=== PATIENT | male | born 1950 ===

== ENCOUNTER 2016-08-06 09:37 | Observation (INO) | payer MEDICARE ==
--- NOTE | 2016-08-06 10:12 | CT ---
PROCEDURE: CT HEAD WITHOUT CONTRAST. HISTORY: R sided weakness/ numbness code stroke COMPARISON: None available. TECHNIQUE: Axial computed tomography images were obtained through the head/brain without intravenous contrast. Radiation dose: Total exam DLP = 793.76 mGy-cm. This CT exam was performed using one or more of the following dose reduction techniques: Automated exposure control, adjustment of the mA and/or kV according to patient size, and/or use of iterative reconstruction technique. FINDINGS: HEMORRHAGE: No parenchymal , subarachnoid or extra-axial hemorrhage. BRAIN: Mild chronic periventricular white matter ischemic changes seen extending peripherally into the deep white matter both cerebral hemispheres. Moderate volume loss. Minor vascular calcifications are present VENTRICLES: No evidence of obstructive hydrocephalus. CALVARIUM: Unremarkable. PARANASAL SINUSES: Unremarkable as visualized. No significant inflammatory changes. MASTOID AIR CELLS: Unremarkable as visualized. No inflammatory changes. OTHER FINDINGS: None. IMPRESSION: No acute intracranial hemorrhage. Mild chronic periventricular white matter ischemic changes. Moderate volume loss. Findings discussed with Dr. Tiwari at approximately 10:08 a.m. with written down and read back verification.
[2016-08-06 10:14] LABS: BASO # 0.1 K/uL (0.0-0.2); BASO % 1.1 % (0.0-2.0); EOS # 0.1 K/uL (0.0-0.7); EOS % 1.5 % (0.0-4.0); LYMPH # 2.7 K/uL (1.0-4.3); LYMPH % 33.8 % (20.0-40.0); MEAN CELL VOLUME 92.1 fl (80.0-94.0); MEAN CORPUSCULAR HEMOGLOBIN 31.3 pg (27.0-31.0); MEAN CORPUSCULAR HGB CONC 33.9 g/dL (33.0-37.0); MONO # 0.8 K/uL (0.0-0.8); MONO % 9.6 % (0.0-10.0); NEUT # 4.3 K/uL (1.8-7.0); NRBC % 0.1 % (0.0-0.0); RED CELL DISTRIBUTION WIDTH 14.1 % (11.5-14.5); WHITE BLOOD COUNT 7.9 K/uL (4.8-10.8)
--- NOTE | 2016-08-06 10:17 | ED PDOC ---
HPI:STROKE - Time Time: 09:52 - Historian Historian: Patient, Family - Chief Complaint Chief Complaint: Weakness, Numbness - Onset Date: 08/06/16 Time: 09:30 - Timing Timing: Improved - Context Context: Standing, Walking - Location Locate right:: Upper extremity, Lower extremity - Exacerbated by Exacerbated by:: Exertion - Relieved by Relieved by:: Rest - TPA Positive for Contraindication: Yes Reason tPA is not being Administered: rapid improvement, NIHSS <4 - Notes: Notes:: 65yo male hx HTN, presents stating he was moving his car this morning and developed R facial numbness which progressed to arm and upper leg approx 930a this morning. Then had difficulty getting his right hand into his pocket to retrieve keys. Denies weakness, change in speech or vision. Denies headache. [place], here visiting family, takes equivalents of medications for blood pressure. States he takes ASA 80mg daily. On examination he states symptoms have mostly improved since onset. NIHSS Stroke Scale - Date/Time Evaluation Performed Date Performed: 08/06/16 Time Performed: 09:55 When Was NIHSS Performed: Baseline - How Severe is the Stroke Level of Consciousness: 0=Alert LOC to Questions: 0=Both comments correct LOC to commands: 0=Obeys both correctly Best Gaze: 0=Normal Visual: 0=No visual loss Facial: 0=Normal Motor Arm - Left: 0=No drift Motor Arm - Right: 0=No drift Motor Leg - Left: 0=No drift Motor Leg - Right: 0=No drift Limb Ataxia: 0=Absent Sensory: 1=Mild to moderate loss Best Language: 0=No aphasia Dysarthia: 0=Normal articulation Extinction & Inattention (Neglect): 0=Normal, no object Score: 1 rTPA Inclusion/Exclusion - Refusal of Treatment Patient Refused Treatment: No - Inclusion Criteria for Altepase Patient is 18 years or Older: Yes The Clinical Diagnosis of Ischemic Stroke That is Causing a Potentially Disabling Neurological Deficit: No Time of Onset is Well Established to be Less Than 270 Minute Before Treatment Would Begin: Yes Risk/Benefit Discussed With Patient/Family Member Present: Yes - Exclusion Criteria for Altepase Uncontrolled Hypertension at Time of Treatment (Systolic BP above 185 or Diastolic BP above 110 mmHg): No Active Internal Bleeding: No - Warning to TPA With Conditions Following Conditions Weighed Against Anticipated Benefit: Yes Condition: Stroke Serevity Too Mild, Rapid Improvement Past Medical History Reviewed: Historical Data, Nursing Documentation, Vital Signs Vital Signs: Last Vital Signs Temp 96.0 F L 08/06/16 10:00 Pulse 66 08/06/16 10:00 Resp 16 08/06/16 10:00 BP 186/81 H 08/06/16 10:00 Pulse Ox 98 08/06/16 10:00 - Medical History PMH: HTN Denies: Chronic Kidney Disease - Family History Family History: States: Unknown Family Hx - Living Arrangements Living Arrangements: With Family - Social History Current smoker - smoking cessation education provided: No Drugs: Denies - Home Medications Home Medications: Ambulatory Orders Medication Instructions Recorded Aspirin [Ecotrin] 81 mg PO DAILY 08/06/16 Esomeprazole Magnesium [Nexium] 40 mg PO DAILY 08/06/16 - Allergies Allergies/Adverse Reactions: Allergies Allergy/AdvReac Type Severity Reaction Status Date / Time No Known Allergies Allergy Verified 08/06/16 09:55 Review of Systems ROS Statement: Except As Marked, All Systems Reviewed And Found Negative Constitutional: Negative for: Fever, Chills ENT: Negative for: Ear Discharge, Throat Pain Cardiovascular: Negative for: Chest Pain, Palpitations Respiratory: Negative for: Cough, Shortness of Breath Gastrointestinal: Negative for: Nausea, Vomiting Genitourinary Male: Negative for: Dysuria, Frequency Musculoskeletal: Negative for: Neck Pain, Shoulder Pain, Arm Pain, Back Pain, Leg Pain Skin: Negative for: Rash, Lesions Neurological: Positive for: Weakness, Numbness. Negative for: Incoordination, Change in Speech, Confusion, Seizures, Altered Mental Status, Headache, Dizziness Psych: Negative for: Anxiety, Depression Physical Exam - Reviewed Nursing Documentation Reviewed: Yes Vital Signs Reviewed: Yes - Physical Exam Appears: Positive for: Well, Non-toxic, No Acute Distress Head Exam: Positive for: ATRAUMATIC, NORMAL INSPECTION, NORMOCEPHALIC Skin: Positive for: Normal Color, Warm, DRY Eye Exam: Positive for: Normal appearance, EOMI, PERRL. Negative for: Conjunctival injection, Scleral icterus ENT: Positive for: Normal ENT Inspection Neck: Positive for: Normal, Painless ROM Cardiovascular/Chest: Positive for: Regular Rate, Rhythm Respiratory: Positive for: CNT, Normal Breath Sounds Pulses-Radial (L): 2+ Pulses-Radial (R): 2+ Gastrointestinal/Abdominal: Positive for: Normal Exam, Bowel Sounds, Soft Back: Positive for: Normal Inspection Extremity: Positive for: Normal ROM Neurologic/Psych: Positive for: Alert, toilet attendant II-XII (intact grossly), Oriented, Gait (able to stand to change into gown), Other (sensation ?subjective changes to RUE, strength 5/5 all ext). Negative for: Motor/Sensory Deficits, Aphasia, Facial Droop - Laboratory Results Result Diagrams: 08/06/16 10:00 08/06/16 10:00 - ECG O2 Sat by Pulse Oximetry: 98 Pulse Ox Interpretation: Normal Medical Decision Making Medical Decision Making: code stroke pathway was initiated. CT brain report reviewed and d/w radiologist Dr Dillon labs reviewed Aspirin ordered. Symptoms resolved in ED but given clinical history admit obs for TIA workup. D/w Dr Hidalgo correspondence school instructor medicine and Dr Andersen correspondence school instructor neurology Disposition - Clinical Impression Clinical Impression: TIA (transient ischemic attack) - Patient ED Disposition Is Patient to be Admitted: Yes Counseled Patient/Family Regarding: Studies Performed, Diagnosis - Disposition Disposition Time: 10:40 Condition: STABLE - Pt Status Changed To: Hospital Disposition Of: Observation - POA Present On Arrival: None
[2016-08-06 10:40] LABS: ALB/GLOB RATIO 1.4 (1.0-2.1); ALKALINE PHOSPHATASE 44 U/L (38-126); ALT/SGPT 36 U/L (21-72); AST/SGOT 35 U/L (17-59); BILIRUBIN,TOTAL 0.5 mg/dl (0.2-1.3); BLOOD UREA NITROGEN 24 mg/dl (9-20); CALCIUM 9.7 mg/dL (8.4-10.2); CARBON DIOXIDE 24 mmol/L (22-30); CHLORIDE 104 mmol/L (98-107); CHOLESTEROL 155 mg/dL (0-199); GFR AFRICAN-AMERICAN > 60; GLUCOSE,RANDOM 114 mg/dL (75-110); POTASSIUM 3.9 MMOL/L (3.6-5.0); SODIUM 142 mmol/l (132-148); TOTAL PROTEIN 7.6 G/DL (6.3-8.2)
[2016-08-06 12:41] VITALS: BMI 27.3
--- NOTE | 2016-08-06 12:41 | RAD ---
HISTORY: R weakness COMPARISON: No prior. FINDINGS: LUNGS: No active pulmonary disease. PLEURA: No significant pleural effusion identified, no pneumothorax apparent. CARDIOVASCULAR: Normal. OSSEOUS STRUCTURES: No significant abnormalities. VISUALIZED UPPER ABDOMEN: Normal. OTHER FINDINGS: None. IMPRESSION: No active disease.
[2016-08-06] MEDS ORDERED: Pneumococcal 23-Valent Vaccine IM ONE (16:03)
--- NOTE | 2016-08-06 16:39 | HP ---
The patient is a 65-year-old male who was admitted via the Emergency Room because of a sudden onset o f numbness of the right side of the face, associated with right arm and right leg numbness and tingli ng on the day of admission. The symptoms resolved while he was in the Emergency Room. He indicates that he had been trying to a pack his car and felt the above symptoms and called his who made ar rangements to bring him to the Emergency Room. He is visiting from [place] and has a past medical his tory of hypertension, hip replacement surgery, bradycardia. FAMILY HISTORY: Remarkable for mother who has had cerebrovascular accident in the past. SOCIAL HISTORY: He does not drink or smoke and indicates he occasionally enjoys a cigar and red wine . 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 PHYSICAL EXAMINATION: GENERAL: The patient is alert, oriented, appears to be in no apparent distress at present. VITAL SIGNS: Blood pressure 130/73 with a pulse of 58, respiratory rate is 18. He is afebrile. O2 sat 98% on room air. SKIN: Shows fair turgor. HEENT: Pupils equal, react to light and accommodation. Mouth shows fair hygiene. NECK: JVP flat. LUNGS: Clear. HEART: Regular. No murmurs or gallops. ABDOMEN: Soft, nontender, no organomegaly. EXTREMITIES: Shows no edema or cyanosis. CENTRAL NERVOUS SYSTEM: No gross deficits appreciated. LABORATORY DATA: CAT scan of the brain, chest x-ray have been reviewed and are unremarkable. EKG is remarkable for sinus bradycardia. Echocardiogram and carotid ultrasound are done, results pending. IMPRESSION: Transient ischemic attack. One has to rule out acute cerebrovascular accident. Hyperte nsion, fairly controlled. History of bradycardia. PLAN: Aspirin, Lovenox. Monitor patient in telemetry. Neuro checks q. shift for the next 24 hours. Neurology evaluation already requested. Further therapy will depend on findings. If all workup is noncontributory, we will discharge patient in the a.m. after close observation. Ge Hidalgo MD cc: 62 TT: 08/06/2016 16:39:06 sn
[2016-08-06] MEDS: Enoxaparin 40 mg Syringe SC SCH (17:14)
--- NOTE | 2016-08-06 17:38 | US ---
Duplex ultrasound of the carotid and vertebral arteries 08/06/2016. History: TIA. Grayscale and duplex Doppler evaluation of the cervical carotid and vertebral arteries were performed. The common carotid, carotid bifurcations and cervical ICA and proximal ECA were evaluated. The vertebral arteries were evaluated for gross patency and direction. No prior study available for comparison. Mild intimal thickening seen within both common carotid arteries. No significant atherosclerotic plaque identified small amount of plaque identified within both carotid bifurcations and proximal internal carotid arteries. Changes do not result in significant stepped up velocities The left internal carotid artery is tortuous. Maximal right ICA velocity = 72.9 cm/S Maximal right CCA velocity = 93.8 cm/S ICA/ CCA ratio = 1.0 Maximal left ICA velocity = 89.0 cm/S Maximal left CCA velocity = 101.5 cm/S ICA/CCA ratio = 1.0 Both the right and left vertebral arteries are patent exhibiting antegrade flow Impression: Mild intimal thickening both, carotid arteries. There is also mild calcified plaque changes seen both carotid bifurcations and proximal internal carotid arteries however no significant stepped up velocities.
--- NOTE | 2016-08-06 18:28 | CON ---
DATE: 08/06/2016 REASON FOR CONSULTATION: Numbness of the right side. HISTORY OF PRESENT ILLNESS: The patient is a 65-year-old male who came to the Emergency Room with co mplaints of sudden onset of numbness on the right side of the face and right arm. The symptoms laste d for several minutes and then resolved. By the time he was in the Emergency Room, his symptoms had already resolved. He was trying to park his care and that is when his symptoms started. At the [facility] nt, he feels fine. He denies any other complaints. REVIEW OF SYSTEMS: He denies any headache, dizziness, chest pain, shortness of breath, abdominal isiah n, constipation, diarrhea, dysuria, pyuria, cough, sputum production, hallucinations, skin rash, abno rmal swelling. PAST MEDICAL HISTORY: Includes hypertension. PAST SURGICAL HISTORY: Includes hip replacement. MEDICATIONS: At home includes amlodipine, Hyzaar, baby aspirin and Protonix. ALLERGIES: No known drug allergies. SOCIAL HISTORY: He denies smoking, use of alcohol or illicit drugs. FAMILY HISTORY: Reviewed and noncontributory to the case. PHYSICAL EXAMINATION: GENERAL: The patient is an elderly pleasant male lying on the bed, in no acute distress. VITAL SIGNS: His blood pressure is 130/73, heart rate is 58 per minute, breathing at a rate of 16 pe r minute, temperature is 98.4 degrees Fahrenheit. HEENT: Normocephalic, atraumatic. NECK: Supple. There are no carotid bruits. LUNGS: Clear. CARDIOVASCULAR: S1, S2 audible. No murmurs. ABDOMEN: Soft, nontender, bowel sounds present. NEUROLOGIC EXAMINATION: MENTAL STATUS: The patient is awake, alert, oriented to time, place, person. His speech is fluent. Naming and repetition normal. Memory and cognition are intact. CRANIAL NERVES: Pupils are 4 mm bilaterally, reactive to light. Visual rosario are full. Extraocula r movements are intact. There is no facial asymmetry. Palate is upgoing bilaterally and tongue is m idline. MOTOR: Tone is normal. Power is 5/5 bilaterally in all extremities. Reflexes +1 and symmetrical. Plantars downgoing bilaterally. CEREBELLAR: [id number] shows no dysmetria. GAIT: Narrow based. LABORATORY DATA: Reviewed, shows WBC of 7.9, hemoglobin 14.3, hematocrit of 42.0 and platelets of 24 5. His INR is 0.99. Sodium is 142, potassium 3.9, chloride 104, carbon dioxide content 24, BUN of 2 4, creatinine of 0.9 and glucose of 114. His cholesterol is 155, LDL is 77. He had a CT scan of the head done which shows no acute intracranial pathology. He also had a carotid Doppler study done whi ch shows mild minimal thickening in both carotid arteries. Mild calcified plaque changes seen in bot h carotid bifurcations and proximal internal carotid arteries; however, no significant stenosis seen. IMPRESSION: Transient ischemic attack. The patient is status post numbness on the right side of the face and right arm. RECOMMENDATIONS: 1. The patient to have an MRI of the brain without contrast as well as MRA of the brain. 2. The patient also to have an echocardiogram. 3. The patient's aspirin dose was changed to 325 mg once a day. 4. The patient's MRI of the brain does show a stroke; MRA shows significant stenosis in the intracra nial blood vessels. Consider changing aspirin to Plavix. 5. The patient is not a candidate for TPA administration because of complete resolution of his sympt oms. 6. Please continue supportive care and other treatment. Thank you for the opportunity to participate in the care of this patient. Sha Andersen MD cc: 142 TT: 08/06/2016 18:27:53 Confirmation # [id number] Dictation # [id number] brittanie
[2016-08-06] MEDS ORDERED: Gadodiamide 287 MG/ML VIAL (15ML) IV ONE (19:07)
[2016-08-07] MEDS ORDERED: Pantoprazole 40 mg EC Tab PO SCH (09:00)
[2016-08-07] MEDS: Enoxaparin 40 mg Syringe SC SCH (09:07)
--- NOTE | 2016-08-07 09:07 | CP.PCM.DIS ---
Provider - Provider Date of Admission: 08/06/16 10:50 Attending physician: Ge Hidalgo MD Time Spent in preparation of Discharge (in minutes): 30 Diagnosis - Discharge Diagnosis (1) Cerebrovascular accident (CVA) Status: Acute (2) Hypertension Status: Acute Hospital Course - Lab Results Lab Results: Most Recent Lab Values WBC 7.9 K/uL (4.8-10.8) 08/06/16 10:00 RBC 4.56 Mil/uL (4.40-5.90) 08/06/16 10:00 Hgb 14.3 g/dL (12.0-18.0) 08/06/16 10:00 Hct 42.0 % (35.0-51.0) 08/06/16 10:00 MCV 92.1 fl (80.0-94.0) 08/06/16 10:00 MCH 31.3 pg (27.0-31.0) H 08/06/16 10:00 MCHC 33.9 g/dL (33.0-37.0) 08/06/16 10:00 RDW 14.1 % (11.5-14.5) 08/06/16 10:00 Plt Count 245 K/uL (130-400) 08/06/16 10:00 MPV 9.0 fl (7.2-11.7) 08/06/16 10:00 Neut % (Auto) 54.0 % (50.0-75.0) 08/06/16 10:00 Lymph % (Auto) 33.8 % (20.0-40.0) 08/06/16 10:00 [place] % (Auto) 9.6 % (0.0-10.0) 08/06/16 10:00 Eos % (Auto) 1.5 % (0.0-4.0) 08/06/16 10:00 Baso % (Auto) 1.1 % (0.0-2.0) 08/06/16 10:00 Neut # 4.3 K/uL (1.8-7.0) 08/06/16 10:00 Lymph # 2.7 K/uL (1.0-4.3) 08/06/16 10:00 [place] # 0.8 K/uL (0.0-0.8) 08/06/16 10:00 Eos # 0.1 K/uL (0.0-0.7) 08/06/16 10:00 Baso # 0.1 K/uL (0.0-0.2) 08/06/16 10:00 PT 10.3 SECONDS (9.6-11.2) 08/06/16 10:00 INR 0.99 (0.92-1.08) 08/06/16 10:00 APTT 24.0 SECONDS (23.3-32.5) 08/06/16 10:00 Sodium 142 mmol/l (132-148) 08/06/16 10:00 Potassium 3.9 MMOL/L (3.6-5.0) 08/06/16 10:00 Chloride 104 mmol/L (98-107) 08/06/16 10:00 Carbon Dioxide 24 mmol/L (22-30) 08/06/16 10:00 Anion Gap 18 (10-20) 08/06/16 10:00 BUN 24 mg/dl (9-20) H 08/06/16 10:00 Creatinine 0.9 mg/dL (0.8-1.5) 08/06/16 10:00 Est GFR ( Amer) > 60 08/06/16 10:00 Est GFR (Non-Af Amer) > 60 08/06/16 10:00 POC Glucose (mg/dL) 113 mg/dL (65-110) H 08/06/16 09:56 Random Glucose 114 mg/dL (75-110) H 08/06/16 10:00 Hemoglobin A1c 5.8 % (4.2-6.5) 08/06/16 10:00 Calcium 9.7 mg/dL (8.4-10.2) 08/06/16 10:00 Total Bilirubin 0.5 mg/dl (0.2-1.3) 08/06/16 10:00 AST 35 U/L (17-59) 08/06/16 10:00 ALT 36 U/L (21-72) 08/06/16 10:00 Alkaline Phosphatase 44 U/L (38-126) 08/06/16 10:00 Troponin I < 0.0120 ng/mL (0.00-0.120) 08/06/16 10:00 Total Protein 7.6 G/DL (6.3-8.2) 08/06/16 10:00 Albumin 4.4 g/dL (3.5-5.0) 08/06/16 10:00 Globulin 3.2 gm/dL (2.2-3.9) 08/06/16 10:00 Albumin/Globulin Ratio 1.4 (1.0-2.1) 08/06/16 10:00 Triglycerides 101 mg/DL (0-149) 08/06/16 10:00 Cholesterol 155 mg/dL (0-199) 08/06/16 10:00 LDL Cholesterol Direct 77 mg/dL (0-129) 08/06/16 10:00 HDL Cholesterol 51 MG/DL (30-70) 08/06/16 10:00 Blood Type A POSITIVE 08/06/16 10:00 Antibody Screen Negative 08/06/16 10:00 BBK History Checked No verified bt 08/06/16 10:00 - Hospital Course Hospital Course: no neuro deficits Discharge Exam - Head Exam Head Exam: ATRAUMATIC, NORMAL INSPECTION, NORMOCEPHALIC - Eye Exam Eye Exam: EOMI, Normal appearance, PERRL Pupil Exam: NORMAL ACCOMODATION, PERRL - GI/Abdominal Exam GI & Abdominal Exam: Normal Bowel Sounds - Rectal Exam Rectal Exam: NORMAL INSPECTION - Neurological Exam Neurological exam: Alert, CN II-XII Intact, Normal Gait, Oriented x3, Reflexes Normal - Psychiatric Exam Psychiatric exam: Normal Affect, Normal Mood - Skin Skin Exam: Dry, Intact, Normal Color, Warm Discharge Plan - Follow Up Plan Condition: STABLE Disposition: HOME/ ROUTINE Patient education suggested?: Yes Additional Instructions: will d/c home today and have pt follow up with his pmd and neurologist place on plavix and asa with lipitor case discussed with pt and his
[2016-08-07 10:39] VITALS: O2SAT 98
--- NOTE | 2016-08-07 11:41 | CARD ---
APPROVED REPORT EKG Measurement Heart [id number] <Conclusion> Normal sinus rhythm Normal ECG
--- NOTE | 2016-08-07 11:54 | MRI ---
PROCEDURE: MRI BRAIN WITH AND WITHOUT CONTRAST HISTORY: cva COMPARISON: Comparison made with CT scan brain dated 08/06/2016. TECHNIQUE: Multiplanar, multisequence MR images of the brain were obtained with and without intravenous contrast enhancement. FINDINGS: HEMORRHAGE: No acute parenchymal, subarachnoid or extra-axial hemorrhage. No evidence of hemosiderin deposition identified on gradient echo weighted sequences. DWI: No acute infarct seen on diffusion-weighted images. BRAIN PARENCHYMA: There are a multiple small focal areas of increased T2 signal scattered about the subcortical white matter both cerebral hemispheres nonspecific. Changes could represent chronic sequela of small vessel disease. Some other differential diagnostic considerations would include sequela of old trauma, migraine headaches or post infectious/inflammatory etiologies. Demyelinating disease process less likely though not completely excluded. None of these lesions exhibit contrast enhancement. Mild moderate volume loss ENHANCEMENT: No evidence of enhancing parenchymal nor extra-axial masses or collections. No evidence of unusual meningeal enhancement. VENTRICLES: No evidence of obstructive hydrocephalus. CRANIUM: Unremarkable. ORBITS: Grossly unremarkable. PARANASAL SINUSES/MASTOIDS: Visualized paranasal and mastoid air complexes are clear. VASCULAR SYSTEM: Visualized major vascular flow voids at skull base are patent. OTHER FINDINGS: None . IMPRESSION: No acute intracranial hemorrhage or infarct. There are multiple small nonspecific nonenhancing focal areas of increased T2 signal scattered about the deep and subcortical white matter of both cerebral hemispheres. Changes are nonspecific though may represent tiny chronic lacunar type infarcts. Other etiologies include sequela of migraine headaches, old trauma or post infectious/ inflammatory change demyelinating disease process would be less likely in the absence of a pertinent clinical history however not completely excluded. Moderate generalized volume loss. No enhancing lesions seen.
[2016-08-07 12:51] VITALS: BP 120/74; PULSE 54; RESP 20; TEMP 97.8
--- NOTE | 2016-08-07 14:31 | CARD ---
APPROVED REPORT EXAM: Two-dimensional and M-mode echocardiogram with Doppler and color Doppler. Other Information Quality : GoodRhythm : NSR INDICATION CVA/TIA 2D DIMENSIONS IVSd0.87 (0.7-1.1cm)LVDd4.31 (3.9-5.9cm) LVOT Diameter2.19 (1.8-2.4cm)PWd0.90 (0.7-1.1cm) IVSs1.20 (0.8-1.2cm)LVDs2.91 (2.5-4.0cm) FS (%) 32.5 %PWs1.22 (0.8-1.2cm) M-Mode DIMENSIONS Left Atrium (MM)3.53 (2.5-4.0cm)IVSd1.03 (0.7-1.1cm) Aortic Root3.31 (2.2-3.7cm)LVDd5.50 (4.0-5.6cm) Aortic Cusp Exc.1.22 (1.5-2.0cm)PWd1.16 (0.7-1.1cm) IVSs1.66 cmFS (%) 62 % LVDs2.09 (2.0-3.8cm)PWs1.06 cm Aortic Valve AoV Peak Wuuxjpnk298.8cm/sAoV VTI48.2cmAO Peak GR.19mmHg LVOT Peak [place]l644.6cm/sLVOT VTI25.30cmAO Mean GR.12mmHg MARIE (VMAX)0.22ig2UYJ (VTI)0.34ap3LI P 1/2 Xhay728xt Mitral Valve MV E Semzcgfh19.1cm/sMV DECEL HRKP446hnDG A Mewazndj16.3cm/s MV JYC35flE/A ratio0.7MVA (PHT)2.82cm2 TDI Lateral E' Peak V12.22cm/sMedial E' Peak V8.31cm/sE/Lateral E'3.8 E/Medial E'5.5 Pulmonary Valve PV Peak Datvekfy701.9cm/s LEFT VENTRICLE The left ventricle is normal size. There is normal left ventricular wall thickness. The left ventricular function is normal. The left ventricular ejection fraction is within the normal range. The Ejection Fraction is 65-70%. There is normal LV segmental wall motion. The left ventricular diastolic function is normal. No left ventricle thrombus noted on this study. There is no mass noted in the left ventricle. RIGHT VENTRICLE The right ventricle is normal size. There is normal right ventricular wall thickness. The right ventricular systolic function is normal. ATRIA The left atrium size is normal. The right atrium size is normal. The interatrial septum is intact with no evidence for an atrial septal defect. AORTIC VALVE The aortic valve is moderately thickened. There is trace to mild aortic regurgitation. There is moderate valvular aortic stenosis. There is no aortic valvular vegetation. MITRAL VALVE The mitral valve is normal in structure and function. There is no evidence of mitral valve prolapse. There is no mitral valve stenosis. There is no mitral valve regurgitation noted. TRICUSPID VALVE The tricuspid valve is normal in structure and function. There is no tricuspid valve regurgitation noted. There is no tricuspid valve prolapse or vegetation. There is no tricuspid valve stenosis. PULMONIC VALVE The pulmonary valve is normal in structure and function. There is no pulmonic valvular regurgitation. There is no pulmonic valvular stenosis. GREAT VESSELS The aortic root is normal in size. The IVC is normal in size and collapses >50% with inspiration. PERICARDIAL EFFUSION The pericardium appears normal. There is no pleural effusion. <Conclusion> The left ventricle is normal size. The left ventricular function is normal. The left ventricular ejection fraction is within the normal range. The Ejection Fraction is 65-70%. There is trace to mild aortic regurgitation. There is moderate valvular aortic stenosis.
== END 2016-08-07 15:04 | disposition home or self-care (01) ==
LOC: H.ER 09:37 → H.ERHOLD 10:50 → H.TEL 11:59
PROVIDERS: ADMIT Internal Medicine Pulmonary Disease; ATTEND Internal Medicine Pulmonary Disease
DX: G45.9 Transient cerebral ischemic attack, unspecified (principal); I10 Essential (primary) hypertension; Z96.649 Presence of unspecified artificial hip joint; Z23 Encounter for immunization; Z79.82 Long term (current) use of aspirin
CPT/HCPCS: 70450; 70552; 71010; 80053; 80061; 82948; 83036; 84484; 85025; 85610; 85730; 86850; 86900; 90732; 93005; 93306; 93880; 96372; 97161; 97165; 99285; A9579; G0009; G0378; G8978; G8979; G8980; G8987; G8988; G8989; J1650